=== PATIENT | male | born 2000 ===

== ENCOUNTER 2024-02-01 11:15 | Outpatient (RCR) | payer BC, SELFPAY | END 2024-04-08 13:09 | disposition home or self-care (01) | PROVIDERS: Visit Provider Orthopaedic Surgery Sports Medicine | DX: M25.561 Pain in right knee (principal); M25.571 Pain in right ankle and joints of right foot; Z51.89 Encounter for other specified aftercare | CPT/HCPCS: 97110; 97161 ==